=== PATIENT | female | born 1995 | race Two or more races ===

== ENCOUNTER 2025-05-16 04:26 | Inpatient (IN) | payer OTHER ==
[~2025-05-16] VITALS: Ht 149.9 cm; Wt 77.6 kg
[2025-05-16] MEDS ORDERED: RINGERS SOLUTION,LACTATED 1,000 ML IV SCH (04:30)
[2025-05-16] MEDS ORDERED: CEFAZOLIN SODIUM 1,000 MG VIAL IV SCH ×2 (04:30→14:00)
[2025-05-16 05:00] VITALS: BP 112/69
[2025-05-16] MEDS ORDERED: PRENATAL TABLE1 EAC4 PO (05:18)
[2025-05-16] MEDS ORDERED: NIFEDIPINE20 MG PO (05:18)
[2025-05-16 05:34] LABS: BASO % 0.3 % (0.1-1.2); EOS # 0.11 (0.04-0.54); EOS % 1.2 % (0.7-7.0); LYMPH # 1.66 (1.18-3.74); LYMPH % 17.5 % (19.3-53.1); MEAN PLATELET VOLUME 9.60 fl (9.4-12.4); MONO # 0.71 (0.24-0.82); MONO % 7.5 % (4.7-12.5); NEUT # 6.90 (1.56-6.13); NEUT % 72.7 % (34.0-71.1); RED CELL DISTRIBUTION WIDTH 13.4 % (11.6-14.4)
[2025-05-16 05:35] LABS: URINE APPEARANCE Clear; URINE BILIRRUBIN Negative (NEGATIVE); URINE COLOR Yellow; URINE GLUCOSE Negative (NEGATIVE); URINE KETONE 15 (NEGATIVE); URINE LEUKOCYTE Small; URINE NITRATE Negative; URINE PROTEIN Negative (NEGATIVE); URINE UROBILINOGEN 1.0 E.U./dl
[2025-05-16 05:38] LABS: URINE BACTERIA 1183.8 uL (0.0-1933); URINE EPITHELIAL CELLS 96.2 uL (0.0-38.8); URINE RBC 17.9 uL (0.0-20.8); URINE WBC 56.4 uL (0.0-23.2)
[2025-05-16 05:41] LABS: URINE BLOOD TRACES; URINE CAST 0.70 uL (0.0-1.40)
[2025-05-16 05:53] LABS: INR 1.01
[2025-05-16 06:40] LABS: ALT/SGPT 12.0 U/L (12-78); AST/SGOT 14.0 U/L (15-37); BILIRUBIN TOTAL 0.34 mg/dL (0.3-1.2); BUN CREA RATIO 11.0 (7.0-25.0); CREATININE SERUM 0.45 mg/dL (0.55-1.02); GFR 167.13; GLOBULINA 3.7 G/DL (2.4-3.5); GLUCOSE FASTING 85.0 mg/dL (65-100); OSMOLALITY SERUM 278.0 MOSM/KG (275-295)
[2025-05-16] MEDS ORDERED: ERYTHROMYCIN BASE OPHT 1GM EACH TUBE OP ONE (06:58)
[2025-05-16] MEDS ORDERED: OXYTOCIN 10 UNITS/ML VIAL ONE (06:58)
[2025-05-16 07:16] VITALS: BP 113/71
[2025-05-16] MEDS ORDERED: CARBOPROST TROMETHAMINE 250 MCG/ML AMPUL IM ONE (08:41)
[2025-05-16] MEDS ORDERED: PROMETHAZINE HCL 25 MG/ML AMPUL IV SCH (14:00)
[2025-05-16] MEDS ORDERED: KETOROLAC TROMETHAMINE 30 MG VIAL IM SCH (14:00)
[2025-05-16 16:19] VITALS: BP 117/71
[2025-05-17] VITALS: BP 113/68
[2025-05-17 07:40] LABS: BASO % 0.2 % (0.1-1.2); EOS # 0.03 (0.04-0.54); EOS % 0.2 % (0.7-7.0); LYMPH # 1.10 (1.18-3.74); LYMPH % 8.9 % (19.3-53.1); MEAN PLATELET VOLUME 9.80 fl (9.4-12.4); MONO # 0.63 (0.24-0.82); MONO % 5.1 % (4.7-12.5); NEUT # 10.49 (1.56-6.13); NEUT % 84.9 % (34.0-71.1); RED CELL DISTRIBUTION WIDTH 13.4 % (11.6-14.4)
[2025-05-17] MEDS ORDERED: IRON FUM,PS/FOLIC/BCOMP,C NO.9 1 CAP CAPSULE PO STA (09:44)
[2025-05-17] MEDS ORDERED: IRON FUM,PS/FOLIC/BCOMP,C NO.9 1 CAP CAPSULE PO SCH (09:45)
[2025-05-17 09:50] VITALS: BP 118/71
[2025-05-17] MEDS ORDERED: NAPROXEN 500 MG TABLET PO SCH (13:00)
[2025-05-17 15:39] VITALS: BP 110/72
[2025-05-18 00:40] VITALS: BP 102/61
[2025-05-18 08:30] VITALS: BP 107/62
[2025-05-18 08:44] LABS: BASO % 0.4 % (0.1-1.2); EOS # 0.15 (0.04-0.54); EOS % 1.4 % (0.7-7.0); LYMPH # 1.09 (1.18-3.74); LYMPH % 10.0 % (19.3-53.1); MEAN PLATELET VOLUME 10.00 fl (9.4-12.4); MONO # 0.87 (0.24-0.82); MONO % 8.0 % (4.7-12.5); NEUT # 8.66 (1.56-6.13); NEUT % 79.5 % (34.0-71.1); RED CELL DISTRIBUTION WIDTH 13.9 % (11.6-14.4)
[2025-05-18] MEDS ORDERED: IRON FUM,PS/FOLIC/BCOMP,C NO.9 1 CAP CAPSULE PO SCH (17:00)
== END 2025-05-18 12:57 | disposition home or self-care (01) | DRG 788 ==
LOC: LDR 04:26 → OB/GYN 04:26 → O/R 09:11 → OB/GYN 12:19
PROVIDERS: ADMIT Specialist; ATTEND Specialist
PROC: 4A1HXCZ Monitoring of Products of Conception, Cardiac Rate, External Approach (ICD-10-PCS; 2025-05-16)
PROC: 10D00Z1 Extraction of Products of Conception, Low, Open Approach (ICD-10-PCS; principal; 2025-05-16 09:15)
DX: O69.0XX0 Labor and delivery complicated by prolapse of cord, not applicable or unspecified (principal); Z3A.39 39 weeks gestation of pregnancy; Z37.0 Single live birth